=== PATIENT | female | born 1970 | race Caucasian/White ===

== ENCOUNTER 2017-12-31 21:02 | Emergency (ER) | payer BC, OTHER ==
--- NOTE | 2017-12-31 21:33 | PDOC ---
Rapid Medical Evaluation Chief Complaint: Pain, Acute Time Seen by Provider: 12/31/17 21:28 Medical Evaluation: 12/31/17 21:33 47 year old slipped and fell landed on left knee prior to arrival. PE: pateint alert ox3. able to leg raise. A: knee pain p; left knee xray patient to fast track for further management of care. 12/31/17 21:35 Discharge Disposition - Diagnosis Knee pain, left Qualifiers: Chronicity: acute Qualified Code(s): M25.562 - Pain in left knee - Referrals Referrals: Kelly Marquez MD [Primary Care Provider] - - Patient Instructions - Post Discharge Activity
[2017-12-31 21:35] VITALS: BP 135/81; PULSE 92; TEMP 98.4; BMI 29.2
--- NOTE | 2017-12-31 22:23 | PDOC ---
History of Present Illness - General Chief Complaint: Pain, Acute Stated Complaint: FALL,INJURY Time Seen by Provider: 12/31/17 21:28 - History of Present Illness Initial Comments: 12/31/17 22:20 47-year-old female presents for evaluation of left knee pain. She states she was walking in her backyard slipped on a wet ramp and hyperflexed her knee. She now points to the anterior aspect of the left knee as the area discomfort she takes omeprazole for acid reflux. Past History - Past Medical History Allergies/Adverse Reactions: Allergies Allergy/AdvReac Type Severity Reaction Status Date / Time Sulfa (Sulfonamide Allergy Itching Verified 12/31/17 21:35 Antibiotics) Home Medications: Ambulatory Orders NK [No Known Home Medication] 12/31/17 - Suicide/Smoking/Psychosocial Hx Smoking History: Never smoked Have you smoked in the past 12 months: No Information on smoking cessation initiated: No Hx Alcohol Use: No Drug/Substance Use Hx: No Review of Systems - Review of Systems Musculoskeletal: Yes: See HPI, Joint Pain All Other Systems: Reviewed and Negative *Physical Exam - Vital Signs Last Vital Signs Temp Pulse Resp BP Pulse Ox 98.4 F 92 H 16 135/81 100 12/31/17 21:27 12/31/17 21:27 12/31/17 21:27 12/31/17 21:27 12/31/17 21:27 - Physical Exam Comments: Left knee skin color and temperature are normal range of motion is full with pain at terminal flexion. She does have positive patellofemoral crepitation with range of motion. No evidence of instability mild posterior medial joint line tenderness. No lateral joint line tenderness. Thigh Is soft and nontender she has normal hip range of motion normal ankle range of motion and negative straight leg raise test. She's neurovascular intact. 12/31/17 22:21 Medical Decision Making - Medical Decision Making Is a 47-year-old female with underlying left knee arthritis. She is under the care of an orthopedic surgeon she does not recall the name of I will refer her to our worker's compensation claims examiner orthopedic and have her follow-up with him. X-rays today show no evidence of fracture trauma she does have arthritis 12/31/17 22:21 *DC/Admit/Observation/Transfer Diagnosis at time of Disposition: Arthritis of knee Knee pain, left Qualifiers: Chronicity: acute Qualified Code(s): M25.562 - Pain in left knee - Discharge Dispostion Disposition: HOME Condition at time of disposition: Stable Decision to Admit order: No - Referrals Referrals: Kelly Marquez MD [Primary Care Provider] - Amador Ordonez MD [Non Staff, Medical] - - Patient Instructions Additional Instructions: Return to the emergency room should symptoms worsen or go unresolved. Please follow-up with your orthopedic surgeon in 2-3 days for further evaluation and treatment options. Because of the acid reflux it's only safe you to take Tylenol for pain at this point. - Post Discharge Activity
== END 2017-12-31 22:27 | disposition home or self-care (01) ==
LOC: JERFT 21:02
DX: S89.82XA Other specified injuries of left lower leg, initial encounter (principal); M13.862 Other specified arthritis, left knee; W18.39XA Other fall on same level, initial encounter; Y93.89 Activity, other specified; Y92.017 Garden or yard in single-family (private) house as the place of occurrence of the external cause; Y99.8 Other external cause status; M22.2X2 Patellofemoral disorders, left knee
CPT/HCPCS: 73562-TC-LT-FY; 99281-25

== ENCOUNTER 2022-11-16 00:37 | Emergency (ER) | payer BC ==
[2022-11-16 00:56] VITALS: BP 132/76; PULSE 75; RESP 20; TEMP 98.3; BMI 38.6
[2022-11-16] MEDS ORDERED: LIDOCAINE 5% TOPICAL PATCH TP ONE (00:58)
[2022-11-16] MEDS ORDERED: ACETAMINOPHEN 650 MG/20.3 ML ORAL SOLUTION (CUPS) PO ONE (00:58)
[2022-11-16] MEDS ORDERED: KETOROLAC TROMETHAMINE 30 MG/1 ML VIAL IM ONE (01:03)
[2022-11-16] MEDS ORDERED: LIDOCAINE 5% TOPICAL PATCH ONE (01:22)
[2022-11-16] MEDS ORDERED: KETOROLAC TROMETHAMINE 30 MG/1 ML VIAL ONE (01:22)
[2022-11-16] MEDS ORDERED: ACETAMINOPHEN 325 MG TABLET (FP) ONE (01:22)
[2022-11-16 02:06] LABS: EPI CELLS 3 /uL (0-25.1); HYALINE CASTS 0 /uL (0-3.1); URINE APPEARANCE Error; URINE BACTERIA 72 /uL (0-1359); URINE BILIRUBIN NEGATIVE (NEGATIVE); URINE COLOR YELLOW; URINE GLUCOSE (UA) NEGATIVE (NEGATIVE); URINE KETONE NEGATIVE (NEGATIVE); URINE LEUK ESTERASE TRACE (NEGATIVE); URINE NITRITE NEGATIVE (NEGATIVE); URINE PROTEIN NEGATIVE (NEGATIVE); URINE RBC 9 /uL (0-23.9); URINE UROBILINOGEN 0.2 mg/dL (0.2-1.0); URINE WBC 8 /uL (0-25.8)
[2022-11-16] MEDS ORDERED: LIDOCAINE PATCH REMOVAL MC SCH (22:00)
== END 2022-11-16 03:00 | disposition home or self-care (01) ==
LOC: JER 00:37
PROC: 3E023GC Introduction of Other Therapeutic Substance into Muscle, Percutaneous Approach (ICD-10-PCS; principal; 2022-11-16)
DX: M54.89 Other dorsalgia (principal)
CPT/HCPCS: 81003; 87086; 99284-25

== ENCOUNTER 2023-02-07 14:11 | Emergency (ER) | payer BC ==
[2023-02-07 14:19] VITALS: BP 165/92; PULSE 73; RESP 18; TEMP 98.1; BMI 81.5
[2023-02-07 14:58] LABS: BASO % 0.8 % (0-2.0); EOS % 3.4 % (0-4.5); HEMATOCRIT 41.6 % (32.4-45.2); LYMPH % 20.5 % (8-40); MCH 29.6 pg (25.7-33.7); MCHC 33.7 g/dl (32.0-36.0); MEAN CELL VOLUME 87.7 fl (80-96); MEAN PLT VOLUME 7.1 fl (7.5-11.1); MONO % 9.9 % (3.8-10.2); NEUT % 65.4 % (42.8-82.8); PLATELET COUNT 381 10^3/uL (134-434); RBC 4.74 M/mm3 (3.60-5.2); RDW 13.8 % (11.6-15.6); URINE APPEARANCE CLEAR; URINE BILIRUBIN NEGATIVE (NEGATIVE); URINE COLOR YELLOW; URINE GLUCOSE (UA) NEGATIVE (NEGATIVE); URINE KETONE NEGATIVE (NEGATIVE); URINE LEUK ESTERASE NEGATIVE (NEGATIVE); URINE NITRITE NEGATIVE (NEGATIVE); URINE PROTEIN NEGATIVE (NEGATIVE); URINE UROBILINOGEN 0.2 mg/dL (0.2-1.0); WHITE BLOOD COUNT 8.4 K/mm3 (4.0-10.0)
[2023-02-07 15:15] LABS: POTASSIUM 3.7 mmol/L (3.5-5.1)
[2023-02-07 15:18] LABS: ALBUMIN 4.2 g/dl (3.4-5.0); CALCIUM 9.1 mg/dL (8.5-10.1)
[2023-02-07 15:21] LABS: CREATININE 0.7 mg/dL (0.55-1.3)
[2023-02-07 15:22] LABS: BILIRUBIN,TOTAL 0.4 mg/dL (0.2-1)
[2023-02-07 15:23] LABS: TOT PROT 7.3 g/dl (6.4-8.2)
[2023-02-07] MEDS ORDERED: METHOCARBAMOL 500 MG TABLET PO ONE (17:10)
[2023-02-07] MEDS ORDERED: KETOROLAC TROMETHAMINE 30 MG/1 ML VIAL IVPUSH ONE (17:10)
[2023-02-07] MEDS ORDERED: METHOCARBAMOL 500 MG TABLET ONE (17:19)
[2023-02-07] MEDS ORDERED: KETOROLAC TROMETHAMINE 30 MG/1 ML VIAL ONE (17:20)
== END 2023-02-07 18:06 | disposition home or self-care (01) ==
LOC: JER 14:11
PROC: 3E0333Z Introduction of Anti-inflammatory into Peripheral Vein, Percutaneous Approach (ICD-10-PCS; principal; 2023-02-07)
DX: M54.50 Low back pain, unspecified (principal); X50.0XXA Overexertion from strenuous movement or load, initial encounter; Y93.E5 Activity, floor mopping and cleaning
CPT/HCPCS: 36415; 76775-TC; 80053; 81003; 82150; 83690; 85025; 87086; 99284-25